=== PATIENT | male | born 1955 | race Caucasian/White ===

== ENCOUNTER 2019-09-17 14:48 | Inpatient (IN) | payer BC ==
[~2019-09-17] VITALS: Ht 188 cm; Wt 128.0 kg
[2019-10-17] MEDS ORDERED: ASPIRIN 81M81 MG/TA2 PO (01:02)
[2019-10-17] MEDS ORDERED: LIPITOR20 MG PO (01:04)
[2019-10-17] MEDS ORDERED: FERRO-TIME325 MG PO (01:06)
[2019-10-17] MEDS ORDERED: NIACIN 100100 MG/TAB PO (01:06)
[2019-10-17] MEDS ORDERED: NATURAL C500 MG PO (01:07)
[2019-10-18] VITALS (12 sets, daily range): BP systolic 114–152; BP diastolic 63–91; PULSE 25–78; TEMP 65–987.1
--- NOTE | 2019-10-18 09:18 | NUR ---
Initial visit; Patient leaving for Procedure. Automatic Pinsetter Adjuster offered blessings to both him and his .
--- NOTE | 2019-10-18 12:48 | NUR ---
PT TO ROOM 328 PER BED WITH DI TUTTLE PACU @1215. PT IS A/O X3 VSS, DRESSING TO LEFT KNEE CDI SHYANN WRAP OVER INCISION. SCDS CRYO CUFF INPLACCE. VSS, IV TO PUMP. PT WANT TO CHEW ON NICCOTENE TABS AND TOLD PT THAT WE NEEDS AN ORDER IF HE WANTS TO CONTINUE USING HOME MED.
--- NOTE | 2019-10-18 13:10 | NUR ---
TRAM met with the patient to discuss discharge plan. The patient lives in [place] with his , Dorene (ph#[phone]). He reports independence with ADLs and a cane, walker, and crutches. The patient's PCP is Dr. Jim Geronimo and he receives his medications at [facility]. He reports no difficulties obtaining his meds. The patient does not have advanced directives completed, but he was interested in obtaining a form for [facility]. TRAM provided. The patient plans to return home with his and receive outpatient PT at [facility] upon discharge. No additional needs at this time.
--- NOTE | 2019-10-18 16:40 | NUR ---
PT UP WITH THERAPY AMBULATED 100 +FT. STEADY GAIT RETURNED TO ROOM SITTING IN RECLINER.
--- NOTE | 2019-10-18 21:00 | NUR ---
Pt. sitting up in bed at this time. Pt. is A&OX3, assessment complete. IV to rt. hand patent, IV fluids infusing per orders. Dressing to LTK CDI. Pt. reported pain at a 6 on pain scale, gave pain meds per orders. Pt. ambulated in the levin with the WRISTER this evening. Pt. tolerated well. Pt. denies further needs, call light within reach.
[2019-10-19 04:43] VITALS: BP 110/60; PULSE 70; TEMP 97.8
[2019-10-19 08:18] LABS: HEMATOCRIT 39.7 % (42.0-52.0); HEMOGLOBIN 13.1 g/dl (13.5-18.0)
[2019-10-19] MEDS ORDERED: NORCO 325 MG-7.1 TAB PO (08:51)
[2019-10-19] MEDS ORDERED: ASPI325T6 PO (08:51)
[2019-10-19] MEDS ORDERED: ULTRAM 50MG TAB50 MG PO (08:59)
--- NOTE | 2019-10-19 09:14 | NUR ---
PATIENT TO [place] FOR THRERAPY. AMBULATING WITH STEADY GAIT, PAIN WELL CONTROLLED WITH PO MEDS. DISCHARGE INSTRUCTIONS RECIEVED FOR DISCHARGE LATER TODAY.
[2019-10-19 09:39] VITALS: BP 114/69; PULSE 65; TEMP 97.4
--- NOTE | 2019-10-19 11:03 | NUR ---
Follow-up visit; Patient thanked Mail Sorter And Delivery for looking in on him and visiting. Mail Sorter And Delivery wished him a rapid and thorough recovery.
[2019-10-19 12:00] VITALS: BP 129/69; PULSE 75; TEMP 98.4
--- NOTE | 2019-10-19 14:36 | NUR ---
DISCHARGE INSTSRUCTIONS PROVIDED TO PT AND QUESTIONS ANSWERED. PT ESCORTED TO FRONT VIA WHEEL CHAIR.
== END 2019-10-19 14:37 | disposition home or self-care (01) | DRG 470 ==
LOC: JCC 10-18 06:42
PROVIDERS: ADMIT Orthopaedic Surgery
PROC: 0SRD0J9 Replacement of Left Knee Joint with Synthetic Substitute, Cemented, Open Approach (ICD-10-PCS; principal; 2019-10-18 10:15)
DX: M17.12 Unilateral primary osteoarthritis, left knee (principal); E78.00 Pure hypercholesterolemia, unspecified; I10 Essential (primary) hypertension; I25.10 Atherosclerotic heart disease of native coronary artery without angina pectoris; D64.9 Anemia, unspecified; Z87.891 Personal history of nicotine dependence; I25.2 Old myocardial infarction
CPT/HCPCS: A4314; A9284; C1776; J0690; J1100; J1885; J2250; J2405; J2704; J7120

== ENCOUNTER 2021-02-06 19:57 | Emergency (ER) | payer OTHER ==
[~2021-02-06] VITALS: Ht 188 cm; Wt 130.9 kg
[~2021-02-06 19:57] MED LIST: ASPI325T6 PO; ASPIRIN 81M81 MG/TA2 PO; FERRO-TIME325 MG PO; LIPITOR20 MG PO; NATURAL C500 MG PO; NIACIN 100100 MG/TAB PO; NORCO 325 MG-7.1 TAB PO; ULTRAM 50MG TAB50 MG PO
[2021-02-06 20:26] VITALS: TEMP 98.1
[2021-02-06] MEDS ORDERED: ASPIRIN 81M81 MG/TA2 PO (21:11)
[2021-02-06 21:19] LABS: BASO # 0.1 (0.0-0.2); BASO % 0.5 % (0.0-2.0); EOS # 0.1 (0.0-0.7); EOS % 0.6 % (0-4.0); GRAN # 6.9 (1.4-6.5); GRAN % 66.5 % (42.2-75.2); HEMATOCRIT 44.3 % (42.0-52.0); HEMOGLOBIN 14.8 g/dl (13.5-18.0); LYMPH # 2.6 (1.2-3.4); MEAN CELL VOLUME 87 fl (80.0-100.0); MEAN CORPUSCULAR HEMOGLOBIN 29 pg (27.0-31.0); MEAN CORPUSCULAR HGB CONC 33 g/dl (33.0-37.0); MEAN PLATELET VOLUME 8.3 fl (7.4-10.4); MONO # 0.7 (0.1-0.6); MONO % 7.1 % (1.7-9.3); PLATELET COUNT 320 K/mm3 (130-400); RED BLOOD COUNT 5.11 M/mm3 (4.20-5.60); REDCELL DISTRIBUTION WIDTH-CV 14.7 % (11.5-14.5)
[2021-02-06 21:32] LABS: ALBUMIN 4.4 gm/dL (3.5-5.0); BILIRUBIN,TOTAL 0.6 mg/dL (0.0-1.0); CALCIUM 9.6 mg/dL (8.4-10.2); CREATININE, serum 1.13 (0.66-1.25); TOTAL PROTEIN 8.3 gm/dL (6.4-8.2)
[2021-02-06] MEDS ORDERED: DOXYCYCLINE 10100 MG PO (22:49)
[2021-02-06] MEDS ORDERED: NORCO 325 MG-51 TAB PO (22:50)
[2021-02-06 23:04] VITALS: BP 127/88; PULSE 70
== END 2021-02-06 23:04 | disposition home or self-care (01) ==
LOC: COL.ER 19:57
PROVIDERS: Personal Emergency Response Attendant
DX: R51.9 Headache, unspecified (principal); M79.10 Myalgia, unspecified site; R11.2 Nausea with vomiting, unspecified; M54.2 Cervicalgia; M54.9 Dorsalgia, unspecified; I25.10 Atherosclerotic heart disease of native coronary artery without angina pectoris; Z87.891 Personal history of nicotine dependence; Z79.82 Long term (current) use of aspirin
CPT/HCPCS: J1885; J2270; J2405; J7030

== ENCOUNTER → 2023-04-22 | Outpatient (CLI) | payer MEDICARE ==
[~2023-04-22] MED LIST changes: +DOXYCYCLINE 10100 MG PO; +NORCO 325 MG-51 TAB PO
== END ==
LOC: COL.RAD 07:20
DX: Z12.2 Encounter for screening for malignant neoplasm of respiratory organs (principal); I71.43 Infrarenal abdominal aortic aneurysm, without rupture; Z87.891 Personal history of nicotine dependence